=== PATIENT | female | born 1985 | race African-American/Black ===

== ENCOUNTER 2018-03-23 12:07 | Emergency (ER) | payer OTHER | END 2018-03-23 15:47 | disposition home or self-care (01) | LOC: M ED 12:07 | DX: R60.0 Localized edema (principal); M25.562 Pain in left knee; Z86.718 Personal history of other venous thrombosis and embolism | CPT/HCPCS: 93970 ==

== ENCOUNTER 2021-12-06 11:54 | Inpatient (IN) | payer BC, MEDICAID, OTHER ==
[~2021-12-06] VITALS: Ht 165.1 cm; Wt 95.7 kg
[~2021-12-06 11:54] MED LIST: IBUP80TA PO; XARE15TA PO
[2021-12-06] MEDS ORDERED: GI COCKTAIL 50ML BTL(HYOSCYAMINE/MAALOX/LIDOCAINE VISCOUS)(1:3:1) PO ONE (13:45)
[2021-12-06] MEDS ORDERED: EXCETAB33 PO (14:23)
[2021-12-06 14:29] LABS: BASO # 0.1 10^3/uL (0.0-0.2); BASO % 0.7 % (0.0-1.0); EOS # 0.2 10^3/uL (0.0-0.5); EOS % 2.5 % (0.0-3.0); HEMATOCRIT 34.1 % (36.0-47.0); HEMOGLOBIN 11.2 g/dl (12.0-15.5); LYMPH # 1.9 10^3/uL (1.5-5.0); LYMPH % 26.9 % (24.0-44.0); MEAN CORPUSCULAR HGB CONC 32.8 g/dl (32.0-36.5); MEAN CORPUSCULAR VOLUME 100.6 fl (80.0-96.0); MONO % 14.6 % (2.0-8.0); NEUTROPHILS # 3.8 10^3/uL (1.5-8.5); PLATELET COUNT, AUTOMATED 202 10^3/uL (150-450); RED BLOOD COUNT 3.39 10^6/uL (4.00-5.40); WHITE BLOOD COUNT 6.9 10^3/uL (4.0-10.0)
[2021-12-06 14:52] LABS: ALBUMIN 3.4 GM/DL (3.2-5.2); ALT/SGPT 147 U/L (12-78); BILIRUBIN,DIRECT < 0.1 MG/DL (0.0-0.2); BILIRUBIN,TOTAL 0.2 MG/DL (0.2-1.0); LIPASE 153 U/L (73-393); TOTAL PROTEIN 6.4 GM/DL (6.4-8.2)
[2021-12-06 14:54] LABS: CK-MB VALUE MASS < 1.0 NG/ML (<3.6); CPK CREATINE PHOSPHOKINASE 899 U/L (26-192); MB/CK RELATIVE INDEX 0.11 (< OR =4)
[2021-12-06] MEDS ORDERED: KETOROLAC 30 MG/ML 1ML VIAL IV ONE (16:00)
[2021-12-06] MEDS ORDERED: NS 1,000 ML IV ONE (17:35)
[2021-12-06] MEDS ORDERED: ONDANSETRON 4MG/2ML VIAL IV ONE (17:40)
[2021-12-06] MEDS ORDERED: MORPHINE 2 MG/ML 1ML VIAL (J2270) IV ONE (17:40)
[2021-12-06] MEDS ORDERED: PIPERACILLIN/TAZOBACTAM SOD 3.375 GM in D5W MINI-BAG PLUS 50 ML IV ONE (17:55)
[2021-12-06] MEDS ORDERED: ESSETAB4 PO (18:19)
[2021-12-06] MEDS ORDERED: BIOT1000 PO (18:19)
[2021-12-06] MEDS ORDERED: HOME MED LIST COMPLETE! XX SCH (18:20)
[2021-12-06 18:41] LABS: RSV AMPLIFICATION NEGATIVE (NEGATIVE)
[2021-12-06] MEDS ORDERED: KETOROLAC 30 MG/ML 1ML VIAL IV PRN (21:00)
[2021-12-06] MEDS ORDERED: ONDANSETRON 4MG/2ML VIAL IV PRN (21:00)
[2021-12-06] MEDS ORDERED: ACETAMINOPHEN TAB 650MG DOSE (2X325MG) PO PRN (21:00)
[2021-12-06] MEDS: NS 1,000 ML IV SCH (21:00)
[2021-12-06] MEDS ORDERED: MORPHINE 2 MG/ML 1ML VIAL (J2270) IV PRN (21:00)
[2021-12-07] VITALS (8 sets, daily range): BP systolic 137–147; BP diastolic 80–88
[2021-12-07] MEDS: PIPERACILLIN/TAZOBACTAM SOD 3.375 GM in D5W MINI-BAG PLUS 50 ML IV SCH ×3 (01:00→12:19)
[2021-12-07] MEDS: NS 1,000 ML IV SCH ×3 (02:00→19:32)
[2021-12-07 11:00] LABS: BASO % 0.5 % (0.0-1.0); EOS # 0.2 10^3/uL (0.0-0.5); EOS % 2.7 % (0.0-3.0); HEMATOCRIT 33.6 % (36.0-47.0); LYMPH # 1.5 10^3/uL (1.5-5.0); LYMPH % 26.6 % (24.0-44.0); MEAN CORPUSCULAR HEMOGLOBIN 33.4 pg (27.0-33.0); MEAN CORPUSCULAR HGB CONC 32.7 g/dl (32.0-36.5); MEAN CORPUSCULAR VOLUME 102.1 fl (80.0-96.0); MONO # 0.6 10^3/uL (0.0-0.8); MONO % 11.4 % (2.0-8.0); NEUTROPHILS # 3.2 10^3/uL (1.5-8.5); NEUTROPHILS % 58.6 % (36.0-66.0); PLATELET COUNT, AUTOMATED 185 10^3/uL (150-450); RED BLOOD COUNT 3.29 10^6/uL (4.00-5.40); WHITE BLOOD COUNT 5.5 10^3/uL (4.0-10.0)
[2021-12-07 11:35] LABS: ALBUMIN 3.1 GM/DL (3.2-5.2); ALT/SGPT 116 U/L (12-78); BILIRUBIN,TOTAL 0.6 MG/DL (0.2-1.0); BLOOD UREA NITROGEN 8 MG/DL (7-18); CARBON DIOXIDE LEVEL 25 MEQ/L (21-32); CHLORIDE LEVEL 111 MEQ/L (98-107); CREATININE FOR GFR 0.79 MG/DL (0.55-1.30); GLOMERULAR FILTRATION RATE > 60.0 (>60); GLUCOSE, FASTING 82 MG/DL (70-100); POTASSIUM SERUM 3.7 MEQ/L (3.5-5.1); SODIUM LEVEL 141 MEQ/L (136-145)
[2021-12-07] MEDS ORDERED: KETOROLAC 60MG 2ML VIAL As Ordered ONE (15:53)
[2021-12-07] MEDS ORDERED: fentaNYL 250 MCG/5 ML INJECTION As Ordered ONE (15:53)
[2021-12-07] MEDS ORDERED: ROCURONIUM BROMIDE 50 MG/5 ML VIAL As Ordered ONE ×2 (15:53→16:40)
[2021-12-07] MEDS ORDERED: ONDANSETRON 4MG/2ML VIAL As Ordered ONE (15:53)
[2021-12-07] MEDS ORDERED: MIDAZOLAM INJ 2MG/2ML VIAL (J2250 PER 1MG) As Ordered ONE ×2 (15:53→18:28)
[2021-12-07] MEDS ORDERED: SUGAMMADEX SODIUM 500 MG/5 ML VIAL (BRIDION) As Ordered ONE (15:53)
[2021-12-07] MEDS ORDERED: dexameTHASONE 4 MG/ML 1ML VIAL (J1100 PER 1MG) As Ordered ONE (15:53)
[2021-12-07] MEDS ORDERED: LIDOCAINE 2% 100MG/5ML SDV (FOR ANES.) As Ordered ONE (15:53)
[2021-12-07] MEDS ORDERED: propofoL 200 MG/20 ML VIAL As Ordered ONE ×2 (15:53→17:42)
[2021-12-07] MEDS ORDERED: BUPIVACAINE/EPIN 0.5% 30 ML VIAL As Ordered ONE (15:54)
[2021-12-07] MEDS ORDERED: ACETAMINOPHEN 1000MG 100ML IV BTL (OFIRMEV) (J0131 PER 10MG) As Ordered ONE (15:57)
[2021-12-07] MEDS ORDERED: ePHEDrine SULFATE 25 MG/5 ML(5MG/ML) SYRINGE As Ordered ONE (16:37)
[2021-12-07] MEDS ORDERED: hydrALAZINE 20MG/ML 1ML VIAL (J0360 PER 20MG) As Ordered ONE (17:04)
[2021-12-07] MEDS ORDERED: MORPHINE 4 MG/ML 1ML VIAL/SYRINGE (J2270) IV PRN (18:10)
[2021-12-07] MEDS ORDERED: NORCO, ANEXSIA 5/325MG TABLET (HYDROcodone/ACETAMINOPHEN) PO PRN (18:10)
[2021-12-07] MEDS ORDERED: METOCLOPRAMIDE INJ 10MG/2ML VIAL (J2765 PER 1) IV PRN (18:15)
[2021-12-07] MEDS ORDERED: fentaNYL 100 MCG/2 ML INJECTION IV PRN (18:15)
[2021-12-07] MEDS ORDERED: ONDANSETRON 4MG/2ML VIAL IV PRN (18:15)
[2021-12-07] MEDS ORDERED: HYDROMORPHONE HCL 0.5 MG/ 0.5 ML SYRINGE (J1170 PER 1) IV PRN (18:15)
[2021-12-07] MEDS ORDERED: oxyCODONE 5MG TAB PO PRN (18:15)
[2021-12-07] MEDS ORDERED: LR 1,000 ML IV SCH (18:15)
[2021-12-07] MEDS ORDERED: MIDAZOLAM INJ 2MG/2ML VIAL (J2250 PER 1MG) IV PRN (18:35)
[2021-12-07] MEDS ORDERED: EXCEDRIN MIGRAINE TABLET PO PRN (23:55)
[2021-12-08] MEDS: NS 1,000 ML IV SCH (00:15)
[2021-12-08 02:00] VITALS: BP 135/81
[2021-12-08 06:00] VITALS: BP 129/78
[2021-12-08 06:21] LABS: ALBUMIN 3.2 GM/DL (3.2-5.2); BILIRUBIN,DIRECT 0.1 MG/DL (0.0-0.2); BILIRUBIN,TOTAL 0.4 MG/DL (0.2-1.0); TOTAL PROTEIN 6.4 GM/DL (6.4-8.2)
== END 2021-12-08 11:45 | disposition home or self-care (01) | DRG 263 ==
LOC: M ED 11:54 → M SDC 20:58 → ENRESERV 12-07 00:36 → M MS5PR 12-07 02:14 → M SDC 12-07 18:08 → M MS5PR 12-07 18:09
PROVIDERS: ADMIT Surgery; ATTEND Surgery
PROC: 0FT44ZZ Resection of Gallbladder, Percutaneous Endoscopic Approach (ICD-10-PCS; principal; 2021-12-07 13:00)
DX: K81.0 Acute cholecystitis (principal)

== ENCOUNTER → 2022-11-03 | Outpatient (REF) | payer BC ==
[~2022-11-03] MED LIST changes: +BIOT1000 PO; +ESSETAB4 PO; +EXCETAB32 PO
== END ==
LOC: M LAB REF 16:54
PROVIDERS: ATTEND Nurse Practitioner Family
DX: R87.615 Unsatisfactory cytologic smear of cervix (principal); Z01.419 Encounter for gynecological examination (general) (routine) without abnormal findings
CPT/HCPCS: 87624; G0123

== ENCOUNTER → 2023-09-13 | Outpatient (CLI) | payer BC, OTHER | LOC: M RAD 10:00 | PROVIDERS: ATTEND Physician Assistant | DX: I73.9 Peripheral vascular disease, unspecified (principal) ==

== ENCOUNTER → 2024-06-07 | Outpatient (REF) | LOC: M EMP 08:28 | PROVIDERS: ATTEND Family Medicine | DX: Z20.822 Contact with and (suspected) exposure to COVID-19 (principal) ==